=== PATIENT | male | born 1935 | race Caucasian/White ===

== ENCOUNTER 2021-10-25 11:49 | Outpatient (CLI) | payer OTHER | END 2021-10-25 11:53 | disposition home or self-care (01) | LOC: SONOGRAMA 11:49 | PROVIDERS: ATTEND Pathology Anatomic Pathology & Clinical Pathology | DX: E04.2 Nontoxic multinodular goiter (principal) ==

== ENCOUNTER 2022-01-30 09:04 | Outpatient (CLI) | payer OTHER | END 2022-01-30 09:09 | disposition home or self-care (01) | LOC: RX STUDY 09:04 | PROVIDERS: ATTEND Otolaryngology Plastic Surgery within the Head & Neck | DX: R13.19 Other dysphagia (principal) ==